=== PATIENT | male | born 1980 | race African-American/Black ===

== ENCOUNTER 2016-08-07 16:07 | Emergency (ER) | payer OTHER ==
[~2016-08-07] VITALS: Ht 185.4 cm; Wt 84.8 kg
[2016-08-07 16:44] VITALS: BP 121/61
[2016-08-07] MEDS ORDERED: Lidocaine 2% Visc 15ml soln ORAL ONE (17:15)
[2016-08-07] MEDS ORDERED: Metoclopramide 10mg/2ml Inj IM SCH (17:15)
[2016-08-07] MEDS ORDERED: Dicyclomine HCl 10mg/5ml oral soln ORAL ONE (17:15)
--- NOTE | 2016-08-07 17:19 | Emergency Room Report ---
History of Present Illness General Chief Complaint: General Complaint Source: Patient Present Illness HPI 36YOM with 4 days intractable hiccups, day and night. Tried all home remedies. Only time he doesnt have hiccups is when working out. Denies chest pain, SOB, fever/chills, abd pain, recent URI symptoms, sick contacts. Allergies: Coded Allergies: PENICILLINS (Verified Allergy, Unknown, 08/07/16) Patient History Past Medical History: HIV Past Surgical History: none Pertinent Family History: none Social History: Denies: alcohol use, drug use, smoking Immunizations: UTD Reviewed Nursing Documentation: PMH: Agreed, PSxH: Agreed Nursing Documentation-PMH Past Medical History: No Stated History Review of Systems All Other Systems: negative except mentioned in HPI Physical Exam Vital Signs Date Time Temp Pulse Resp B/P Pulse Ox O2 Delivery O2 Flow Rate FiO2 08/07/16 16:12 65 18 121/61 99 Room Air Sp02 EP Interpretation: reviewed, normal General Appearance: normal inspection, well appearing, no apparent distress, alert, GCS 15, non-toxic, other - Repeatedly hiccuping Head: normocephalic, atraumatic Eyes: bilateral eye EOMI, bilateral eye PERRL ENT: normal ENT inspection, hearing grossly normal, normal voice Neck: normal inspection, full range of motion, supple, no bony tend Respiratory: normal inspection, lungs clear, normal breath sounds, no respiratory distress, no retraction, no accessory muscle use, no wheezing, speaking full sentences Cardiovascular #1: regular rate, rhythm, no edema Gastrointestinal: normal inspection, normal bowel sounds, non tender, soft, no guarding, no hernia Genitourinary: no CVA tenderness Musculoskeletal: normal inspection, back normal, normal range of motion, Emiliano' s Sign negative Neurologic: normal inspection, alert, oriented x3, responsive, berry planter III-XII nml as tested, motor strength/tone normal, speech normal Psychiatric: normal inspection, judgement/insight normal, mood/affect normal Skin: normal inspection, normal color, no rash Lymphatic: normal inspection Medical Decision Making Diagnostic Impression: Primary Impression: Intractable hiccups ER Course Hiccups resolved with IV thorazine CBC/CMP and CXR negative for acute medical causes of intractable hiccups Rx Trazodone for recurrence PMD followup as needed [place] home Chest X-Ray Diagnostic Results EP Interpretation: Yes Findings: no consolidation, no effusion, no pneumothorax, no acute cardiopulmonary disease Number of Views: 1 Last Vital Signs Date Time Temp Pulse Resp B/P Pulse Ox O2 Delivery O2 Flow Rate FiO2 08/07/16 16:44 78 18 121/61 99 Room Air Status: improved Disposition: HOME, SELF-CARE Scripts Trazodone Hcl* (DESYREL*) 50 Mg Tablet 50 MG ORAL BEDTIME for hiccups for 7 Days, #14 TAB Prov: MARIUSZ MON M.D. 08/07/16 MARIUSZ MON M.D. Aug 07, 2016 17:19
[2016-08-07 18:11] LABS: BASOPHILS % (AUTO) 2.5 % (0.0-2.0); EOSINOPHILS % (AUTO) 4.5 % (0.0-3.0); LYMPHOCYTES % (AUTO) 47.5 % (20.0-45.0); MEAN CORPUSCULAR HEMOGLOBIN 34.7 PG (27.0-31.0); MEAN CORPUSCULAR HGB CONC 38.4 G/DL (32.0-36.0); MEAN CORPUSCULAR VOLUME 90 FL (80-99); MEAN PLATELET VOLUME 8.9 FL (6.5-10.1); MONOCYTES % (AUTO) 9.4 % (1.0-10.0); NEUTROPHILS % (AUTO) 36.1 % (45.0-75.0); PLATELET COUNT 146 K/UL (150-450); RED BLOOD COUNT 4.78 M/UL (4.70-6.10); RED CELL DISTRIBUTION WIDTH 11.6 % (11.6-14.8); WHITE BLOOD COUNT 7.1 K/UL (4.8-10.8)
[2016-08-07 18:30] LABS: ALANINE AMINOTRANSFERASE 22 U/L (3-41); ALBUMIN/GLOBULIN RATIO 1.5 (1.0-2.7); ANION GAP 16 (5-15); ASPARTATE AMINO TRANSFERASE 43 U/L (5-40); CALCIUM 9.8 mg/dL (8.6-10.2); CARBON DIOXIDE 26 mEQ/L (20-30); CHLORIDE 97 mEQ/L (98-107); CREATININE 1.3 mg/dL (0.7-1.2); GLOMERULAR FILTRATION RATE > 60 mL/min (>60); HEMOLYSIS 16; POTASSIUM 3.9 mEQ/L (3.4-4.9); SODIUM 139 mEQ/L (135-145); TOTAL PROTEIN 7.3 g/dL (6.6-8.7)
[2016-08-07 19:14] VITALS: BP 118/62
[2016-08-07] MEDS ORDERED: TRAZODONE HCL50 MG ORAL (19:14)
[2016-08-07 19:21] VITALS: BP 118/62
--- NOTE | 2016-08-08 11:45 | Diagnostic Imaging Report ---
Indication: Chest Pain Comparison: None A single view chest radiograph was obtained. Findings: Cardiomediastinal appearance is within normal limits for age. Pulmonary vascularity is appropriate. The diaphragmatic contour is smooth and costophrenic angles are sharp. No pleural effusions are identified. The bones are unremarkable. Impression: No acute findings
== END 2016-08-07 19:24 | disposition home or self-care (01) ==
LOC: EMR 16:30
DX: R06.6 Hiccough (principal); Z88.0 Allergy status to penicillin
CPT/HCPCS: 36415; 71010; 80053; 85025; 96372; 96374; 99284; J2765; J3230